=== PATIENT | male | born 1975 | race Caucasian/White ===

== ENCOUNTER 2024-07-07 12:34 | Outpatient (CLI) | payer BC, OTHER | END 2024-07-07 23:59 | disposition home or self-care (01) | LOC: MRI02 12:34 | PROVIDERS: ATTEND Podiatrist Foot & Ankle Surgery | DX: S82.62XA Displaced fracture of lateral malleolus of left fibula, initial encounter for closed fracture (principal); S82.832A Other fracture of upper and lower end of left fibula, initial encounter for closed fracture; S93.402A Sprain of unspecified ligament of left ankle, initial encounter; M25.472 Effusion, left ankle; M25.372 Other instability, left ankle; M65.872 Other synovitis and tenosynovitis, left ankle and foot; X58.XXXA Exposure to other specified factors, initial encounter; Y93.89 Activity, other specified; Y92.89 Other specified places as the place of occurrence of the external cause; Y99.8 Other external cause status | CPT/HCPCS: 73721 ==